=== PATIENT | female | born 1985 | race Caucasian/White ===

== ENCOUNTER 2019-08-01 06:02 | Outpatient (CLI) | payer SELFPAY ==
[~2019-08-01] VITALS: Ht 154.9 cm; Wt 89.7 kg
[~2019-08-01 06:02] MED LIST: FER325 PO; PREN-93 PO
[2019-08-01 06:08] VITALS: BP 107/67; PULSE 88; RESP 17; Ht 154.9 cm; Wt 89.7 kg
== END 2019-08-01 08:40 | disposition home or self-care (01) ==
LOC: OBT 06:02 → L-D 06:04 → OBT 08:40
PROVIDERS: ATTEND Obstetrics & Gynecology
DX: O62.9 Abnormality of forces of labor, unspecified (principal); Z3A.38 38 weeks gestation of pregnancy; O09.523 Supervision of elderly multigravida, third trimester
CPT/HCPCS: 76818; G0463

== ENCOUNTER 2019-08-04 18:00 | Outpatient (CLI) | payer SELFPAY ==
[~2019-08-04] VITALS: Ht 154.9 cm; Wt 89.4 kg
[2019-08-04 18:23] VITALS: BP 114/59; PULSE 89; RESP 18; Ht 154.9 cm; Wt 89.4 kg
== END 2019-08-04 21:14 | disposition home or self-care (01) ==
LOC: OBT 18:00 → L-D 18:02 → OBT 21:14
PROVIDERS: ATTEND Obstetrics & Gynecology
DX: O62.9 Abnormality of forces of labor, unspecified (principal); Z3A.38 38 weeks gestation of pregnancy
CPT/HCPCS: G0463